=== PATIENT | male | born 1985 | race African-American/Black ===

== ENCOUNTER 2017-09-19 22:58 | Emergency (ER) | payer OTHER ==
[~2017-09-19] VITALS: Ht 175.3 cm; Wt 104.3 kg
--- NOTE | 2017-09-19 23:30 | NUR ---
PT BIBSELF, W/C TO BED PER PT REQUEST. LEFT ARM NUMBNESS X 30 MINS [employer]. PT AOX3 RR EVEN AND UNLABORED. PT NOT DIAPHORETIC. NO NVD AT THIS TIME. PT DENIES SOB OR CP AT THIS TIME. PT GOWNED AND PLACED ON MONITOR WAITING FOR MD CHIRINOS.
--- NOTE | 2017-09-19 23:31 | NUR ---
DR. HATHAWAY AT BEDSIDE FOR EVAL.
[2017-09-19] MEDS ORDERED: LORAZEPAM 1 MG TABLET ONE (23:36)
--- NOTE | 2017-09-19 23:37 | NUR ---
PT TO CT.
--- NOTE | 2017-09-19 23:42 | NUR ---
PT RETURNED FROM CT.
[2017-09-19] MEDS: LORAZEPAM 1 MG TABLET PO ONE (23:58)
--- NOTE | 2017-09-20 01:48 | NUR ---
DR. HATHAWAY AT BEDSIDE SPEAKING TO PT AND REGARDING RESULTS.
--- NOTE | 2017-09-20 01:51 | NUR ---
Patient discharged to home in stable condition. Written and verbal after care instructions given. Patient verbalizes understanding of instruction. ambulatory with a steady gait. instructed pt not to drive. pt verbalize understanding. pt accompanied by
[2017-09-20 01:52] VITALS: BP 118/77
== END 2017-09-20 01:53 | disposition home or self-care (01) ==
LOC: ER 23:00
DX: F41.9 Anxiety disorder, unspecified (principal); R00.2 Palpitations; R20.2 Paresthesia of skin
CPT/HCPCS: 70450-TC; A4606; Z7610